=== PATIENT | male | born 1945 | race Caucasian/White ===

== ENCOUNTER 2016-12-15 01:51 | Inpatient (IN) | payer MEDICARE, OTHER ==
[~2016-12-15] VITALS: Ht 177.8 cm; Wt 112.5 kg
[2016-12-15] MEDS ORDERED: ASPIRIN 81 MG TAB.CHEW PO ONE (01:55)
[2016-12-15 02:03] VITALS: BP 131/80
[2016-12-15] MEDS ORDERED: IBUP-1842 PO (02:13)
[2016-12-15] MEDS ORDERED: RAMI5CAP1 PO (02:13)
[2016-12-15] MEDS ORDERED: ATEN50TA8 PO (02:13)
[2016-12-15 02:47] LABS: HEMATOCRIT 42.2 % (36-52); HEMOGLOBIN 13.7 g/dL (12.0-18.0); MEAN CORPUSCULAR HEMOGLOBIN 28 pg (27-31); MEAN CORPUSCULAR HGB CONC 33 g/dL (33-37); MEAN CORPUSCULAR VOLUME 87 fL (80-94); PLATELET COUNT (AUTO) 274 K/uL (140-450); RED BLOOD CELL COUNT(AUTO) 4.83 MIL/uL (4.20-6.10); RED CELL DISTRIBUTION WIDTH 12.5 % (11.6-13.7); WHITE BLOOD COUNT (AUTO) 9.4 K/uL (4.8-10.8)
[2016-12-15 02:50] LABS: ALBUMIN 3.9 g/dL (3.4-5.0); ANION GAP 11.7 (8-16); CARBON DIOXIDE 26.1 mmol/L (21-32); CREATININE 0.9 mg/dL (0.7-1.3); EOSINOPHILS % (MANUAL) 2 % (0-4); LYMPHOCYTES % (MANUAL) 28 % (20-46); MONOCYTES % (MANUAL) 6 % (5-12); POTASSIUM 3.8 mmol/L (3.5-5.1); TOTAL BILIRUBIN 0.4 mg/dL (0.0-1.0)
[2016-12-15 03:02] LABS: PROTHROMBIN TIME 11.7 secs (10.8-13.4)
[2016-12-15] MEDS ORDERED: MORPHINE SULFATE 4 MG/ML SYR IVP ONE (03:25)
[2016-12-15] MEDS ORDERED: ACETAMINOPHEN 325 MG TAB PO PRN (03:50)
[2016-12-15] MEDS ORDERED: DOCUSATE SODIUM 100 MG GELCAP PO PRN (03:50)
[2016-12-15] MEDS ORDERED: MORPHINE SULFATE 2 MG/ML SYR IVP PRN (03:55)
[2016-12-15] MEDS ORDERED: NITROGLYCERIN 0.4 MG TAB SL PRN (03:55)
[2016-12-15 04:25] LABS: CHOL/HDL RATIO 6.7 (1-4.5); FREE T4 (FREE THYROXINE) 0.78 ng/dL (0.76-1.46); MAGNESIUM 2.2 mg/dL (1.8-2.4); PHOSPHORUS 3.5 mg/dL (2.5-4.9); THYROID STIMULATING HORMONE 3.89 uIU/mL (0.34-3.74)
[2016-12-15] MEDS ORDERED: LORA-476 PO (04:30)
[2016-12-15] MEDS ORDERED: QUET50TA PO (04:31)
[2016-12-15 04:48] VITALS: BP 141/68
[2016-12-15] MEDS: NACL 0.9% 1,000 ML IV SCH ×2 (05:47→20:26)
[2016-12-15] MEDS: MORPHINE SULFATE 2 MG/ML SYR IVP PRN ×4 (05:56→20:41)
[2016-12-15 07:37] LABS: APPEARANCE,URINE CLEAR (CLEAR); BILIRUBIN,URINE NEGATIVE (NEGATIVE); BLOOD, URINE NEGATIVE (NEGATIVE); COLOR,URINE YELLOW (YELLOW); LEUKOCYTE ESTERASE ,URINE NEGATIVE (NEGATIVE); NITRITE, URINE NEGATIVE (NEGATIVE); PH,URINE 7.5 (5.0-9.0); UGLUCOSE NEGATIVE (NEGATIVE)
[2016-12-15 08:00] VITALS: BP 126/73
[2016-12-15 08:26] LABS: BARBITURATE, URINE NEG. ng/ml (NEG <=200); BENZODIAZEPINE, URINE NEG. ng/mL (NEG <=200); CANNABINOID, URINE NEG. ng/mL (NEG <=50); COCAINE, URINE NEG. ng/mL (NEG <=300); OPIATE, URINE NEG. ng/mL (NEG <=2000); PHENCYCLIDINE SCREEN,URINE NEG. ng/mL (NEG <=25)
[2016-12-15] MEDS: HYDROcodone/APAP 7.5/325 MG 1 TAB PO PRN (08:37)
[2016-12-15] MEDS ORDERED: LISINOPRIL 20 MG TAB PO SCH (09:00)
[2016-12-15] MEDS ORDERED: METOPROLOL SUCCINATE 50 MG TABER PO SCH (09:00)
[2016-12-15] MEDS: ASPIRIN 81 MG TAB.CHEW PO SCH (09:33)
[2016-12-15 12:00] VITALS: BP 125/72
[2016-12-15] MEDS ORDERED: IBUPROFEN 400 MG TAB PO SCH (15:55)
[2016-12-15 16:00] VITALS: BP 143/79
[2016-12-15] MEDS: GEMFIBROZIL 600 MG TAB PO SCH (16:57)
[2016-12-15 20:24] VITALS: BP 135/74
[2016-12-15] MEDS: QUEtiapine FUMARATE 25 MG TAB PO SCH (20:40)
[2016-12-15] MEDS: LORazepam 1 MG TAB PO SCH (20:40)
[2016-12-15] MEDS: ATENOLOL 50 MG TAB PO SCH (20:41)
[2016-12-15] MEDS: ATORVASTATIN 20 MG TAB PO SCH (20:41)
[2016-12-15] MEDS: ONDANSETRON 4 MG/2 ML VIAL IM/IVP PRN (21:35)
[2016-12-16] VITALS: BP 124/74
[2016-12-16] MEDS ORDERED: SIMETHICONE 80 MG TAB.CHEW PO SCH
[2016-12-16] MEDS ORDERED: PNEUMOCOCCAL VACCINE 23 MCG/0.5 ML VIAL IMVAC SCH (01:50)
[2016-12-16 04:00] VITALS: BP 154/94
[2016-12-16] MEDS: MORPHINE SULFATE 2 MG/ML SYR IVP PRN ×2 (04:03→10:06)
[2016-12-16] MEDS: SIMETHICONE 80 MG TAB.CHEW PO PRN ×2 (06:33→12:24)
[2016-12-16] MEDS: GEMFIBROZIL 600 MG TAB PO SCH ×2 (06:33→16:38)
[2016-12-16 08:00] VITALS: BP 119/61
[2016-12-16] MEDS: NACL 0.9% 1,000 ML IV SCH (09:50)
[2016-12-16] MEDS: ASPIRIN 81 MG TAB.CHEW PO SCH (10:02)
[2016-12-16] MEDS: ATENOLOL 50 MG TAB PO SCH ×2 (10:02→21:25)
[2016-12-16] MEDS: LIDOCAINE 5% 1 EA PATCH TP SCH (10:03)
[2016-12-16] MEDS: RAMIPRIL 5 MG CAP PO SCH (10:03)
[2016-12-16 12:00] VITALS: BP 142/74
[2016-12-16] MEDS: ONDANSETRON 4 MG/2 ML VIAL IM/IVP PRN (14:46)
[2016-12-16] MEDS ORDERED: LORazepam 2 MG/ML VIAL IM/IVP SCH ×2 (15:54→22:40)
[2016-12-16 16:00] VITALS: BP 154/74
[2016-12-16] MEDS ORDERED: DICYCLOMINE HCL LIQUID 10 MG/5 ML UDC PO SCH (16:15)
[2016-12-16] MEDS ORDERED: LIDOCAINE VISCOUS 2% 20 ML UDC PO SCH (16:15)
[2016-12-16] MEDS ORDERED: ALUMINUM HYD/MAG/SIMETHICONE 30 ML UDC PO SCH (16:15)
[2016-12-16 20:00] VITALS: BP 127/74
[2016-12-16] MEDS: ATORVASTATIN 20 MG TAB PO SCH (21:25)
[2016-12-16] MEDS: LORazepam 1 MG TAB PO SCH (21:25)
[2016-12-16] MEDS: QUEtiapine FUMARATE 25 MG TAB PO SCH (21:25)
[2016-12-17] VITALS: BP 108/58
[2016-12-17] MEDS ORDERED: PNEUMOCOCCAL VACCINE 23 MCG/0.5 ML VIAL IMVAC PRN (01:50)
[2016-12-17 03:57] VITALS: BP 134/84
[2016-12-17 06:04] LABS: BASOPHILS # (AUTO) 0.2 K/uL (0.00-0.22); BASOPHILS % (AUTO) 1.6 % (0.0-2.0); EOSINOPHILS # (AUTO) 0.3 K/uL (0-0.4); EOSINOPHILS % (AUTO) 2.4 % (0.0-4.0); HEMATOCRIT 41.9 % (36-52); HEMOGLOBIN 13.6 g/dL (12.0-18.0); LYMPHOCYTES # (AUTO) 2.3 K/uL (2.0-11.5); LYMPHOCYTES % (AUTO) 21.1 % (20.5-51.1); MEAN CORPUSCULAR HEMOGLOBIN 29 pg (27-31); MEAN CORPUSCULAR HGB CONC 33 g/dL (33-37); MEAN CORPUSCULAR VOLUME 88 fL (80-94); MONOCYTES # (AUTO) 0.9 K/uL (0.8-1.0); MONOCYTES % (AUTO) 8.4 % (1.7-9.3); NEUTROPHILS # (AUTO) 7.3 K/uL (1.8-7.7); NEUTROPHILS % (AUTO) 66.5 % (42.2-75.2); PLATELET COUNT (AUTO) 309 K/uL (140-450); RED BLOOD CELL COUNT(AUTO) 4.79 MIL/uL (4.20-6.10); RED CELL DISTRIBUTION WIDTH 12.5 % (11.6-13.7)
[2016-12-17 06:16] LABS: T4 (THYROXINE) 5.6 ug/dL (4.5-12.0)
[2016-12-17] MEDS: NACL 0.9% 1,000 ML IV SCH (06:23)
[2016-12-17] MEDS: GEMFIBROZIL 600 MG TAB PO SCH (06:25)
[2016-12-17 06:35] LABS: ANION GAP 13.7 (8-16); CARBON DIOXIDE 24.7 mmol/L (21-32); CREATININE 0.9 mg/dL (0.7-1.3); POTASSIUM 4.4 mmol/L (3.5-5.1)
[2016-12-17 06:49] LABS: MAGNESIUM 2.3 mg/dL (1.8-2.4); PHOSPHORUS 3.9 mg/dL (2.5-4.9)
[2016-12-17 08:00] VITALS: BP 146/82
[2016-12-17] MEDS: ASPIRIN 81 MG TAB.CHEW PO SCH (08:50)
[2016-12-17] MEDS: ATENOLOL 50 MG TAB PO SCH (08:50)
[2016-12-17] MEDS: HYDROcodone/APAP 7.5/325 MG 1 TAB PO PRN (08:51)
[2016-12-17] MEDS: RAMIPRIL 5 MG CAP PO SCH (08:53)
[2016-12-17] MEDS: LIDOCAINE 5% 1 EA PATCH TP SCH (08:58)
[2016-12-17] MEDS ORDERED: OMEP20TC24 PO (09:40)
[2016-12-17] MEDS ORDERED: ATOR20TA40 PO (09:40)
[2016-12-17] MEDS ORDERED: GEMF600T8 PO (09:40)
[2016-12-17] MEDS ORDERED: ATEN100T2 PO (09:40)
[2016-12-17 12:00] VITALS: BP 140/76
== END 2016-12-17 14:15 | disposition home health service (06) | DRG 206 ==
LOC: MED 01:51 → MTU 03:51
PROVIDERS: ADMIT Family Medicine; ATTEND Family Medicine
DX: M94.0 Chondrocostal junction syndrome [Tietze] (principal); G30.9 Alzheimer's disease, unspecified; I10 Essential (primary) hypertension; F02.80 Dementia in other diseases classified elsewhere, unspecified severity, without behavioral disturbance, psychotic disturbance, mood disturbance, and anxiety; K21.9 Gastro-esophageal reflux disease without esophagitis; E78.1 Pure hyperglyceridemia; E02 Subclinical iodine-deficiency hypothyroidism; F32.9 Major depressive disorder, single episode, unspecified; F41.9 Anxiety disorder, unspecified; F43.10 Post-traumatic stress disorder, unspecified; E66.9 Obesity, unspecified; Z68.35 Body mass index [BMI] 35.0-35.9, adult
CPT/HCPCS: 36415; 71010; 80048; 80053; 80305; 81003; 82150; 83036; 83690; 83735; 83880; 84100; 84436; 84439; 84443; 84479; 84484; 85025; 85610; 85730; 87081; 93005; 96374; 99285; J2060; J2270; J2405; J7030; Q0092